=== PATIENT | male | born 1960 | race Caucasian/White ===

== ENCOUNTER 2017-07-22 12:59 | Emergency (ER) | payer OTHER ==
[2017-07-22] MEDS: HYDROCODONE/APAP (10/325) TAB PO (16:19)
== END 2017-07-22 19:22 | disposition home or self-care (01) ==
LOC: E/R 12:59
DX: M54.2 Cervicalgia (principal); M25.511 Pain in right shoulder; M25.551 Pain in right hip; M54.9 Dorsalgia, unspecified; I10 Essential (primary) hypertension; E03.9 Hypothyroidism, unspecified; E11.9 Type 2 diabetes mellitus without complications; Z85.118 Personal history of other malignant neoplasm of bronchus and lung; Z87.891 Personal history of nicotine dependence
CPT/HCPCS: 70450; 71045; 72072; 72100; 72125; 72192; 73000; 73030-RT; 99285-25

== ENCOUNTER 2017-11-30 02:10 | Emergency (ER) | payer OTHER ==
[2017-11-30] MEDS: ACETAMINOPHEN 325 MG TAB PO (05:33)
[2017-11-30] MEDS: ONDANSETRON 4 MG INJ IV ×2 (08:57→11:43)
[2017-11-30] MEDS: HYDROmorphONE 2 MG/ML SYG IV (08:58)
[2017-11-30 09:32] LABS: ANION GAP 9 (8-16); BLOOD UREA NITROGEN 27 mg/dl (7-20); CALCIUM 8.5 mg/dl (8.4-10.2); CARBON DIOXIDE 30 mmol/L (21-31); CHLORIDE 95 mmol/L (97-110); CREATININE 0.84 mg/dl (0.61-1.24); GLUCOSE 124 mg/dl (70-220); POTASSIUM 3.4 mmol/L (3.5-5.1); SODIUM 131 mmol/L (135-144)
[2017-11-30] MEDS ORDERED: IOHEXOL 300MG/ML 150 ML BTL (10:00)
[2017-11-30] MEDS ORDERED: SOD CHLORIDE 0.9% 100 ML (10:00)
[2017-11-30] MEDS: SOD CHLORIDE 0.9% 1,000 ML IV (11:43)
[2017-11-30] MEDS: HYDROmorphONE 1 MG/ML SYG IV (11:44)
== END 2017-11-30 13:15 | disposition short-term general hospital (02) ==
LOC: E/R 02:10
DX: S22.41XK Multiple fractures of ribs, right side, subsequent encounter for fracture with nonunion (principal); S32.8 Fracture of other parts of pelvis; S32.10XK Unspecified fracture of sacrum, subsequent encounter for fracture with nonunion; S32.009K Unspecified fracture of unspecified lumbar vertebra, subsequent encounter for fracture with nonunion; I10 Essential (primary) hypertension; E11.9 Type 2 diabetes mellitus without complications; F17.210 Nicotine dependence, cigarettes, uncomplicated; V26.4XXA Motorcycle driver injured in collision with other nonmotor vehicle in traffic accident, initial encounter; Z85.118 Personal history of other malignant neoplasm of bronchus and lung
CPT/HCPCS: 36415; 70450; 71045; 72100; 72125; 72131; 73110-RT; 73510; 73550; 73562; 74177; 80048; 96374; 96375; 96376; 99285-25